=== PATIENT | female | born 2000 | race Caucasian/White ===

== ENCOUNTER 2024-02-28 14:49 | Emergency (ER) | payer OTHER ==
[~2024-02-28] VITALS: Ht 149.9 cm; Wt 51.8 kg
[2024-02-28 15:06] VITALS: BP 121/70; PULSE 98; RESP 18; TEMP 98; O2SAT 99
== END 2024-02-28 15:52 | disposition left against medical advice (07) ==
LOC: MED 14:49
DX: R10.9 Unspecified abdominal pain (principal); R11.0 Nausea; Z53.21 Procedure and treatment not carried out due to patient leaving prior to being seen by health care provider
CPT/HCPCS: 99281